=== PATIENT | female | born 1990 | race Caucasian/White ===

== ENCOUNTER 2018-09-04 09:46 | Outpatient (CLI) | payer BC ==
[~2018-09-04] VITALS: Ht 180.3 cm; Wt 72.0 kg
[2018-09-04 10:06] VITALS: Ht 180.3 cm; Wt 72.0 kg
[2018-09-04 10:07] VITALS: BP 111/72; PULSE 85; RESP 20
[2018-09-04] MEDS ORDERED: PREN1TAB13 PO (10:12)
--- NOTE | 2018-09-04 11:31 | PN ---
Triage Information Date/Time Reason for visit: Diarrhea and Flu symptoms Weeks of Gestation 19-20wks /Para 2/1 Diabetes: none Hypertention: none Objective Vital Signs Date Temp Pulse Resp B/P (MAP) Pulse Ox O2 O2 Flow FiO2 Time Delivery Rate 09/04/18 97.9 85 20 111/72 Room Air 10:07 (85) Heart Rate: 140's Contractions: None Disposition: Discharge Assessment/Plan Ultrasound reviewed Questions answered Patient is sent to ER for Further evaluation of Diarrhea and Flu LYNETTE ROWE M.D. Sep 04, 2018 11:31
--- NOTE | 2018-09-04 11:36 | TRIAGE ---
OB Triage Datetime Report Generated by CPN: 09/04/2018 11:36 Datetime: 09/04/2018 10:22 Comments: PT MOVING Datetime: 09/04/2018 09:59 Time of Arrival: 09/04/2018 09:35 Arrived By: Ambulatory Arrived From: Home Chief Complaint: NAUSEA,DIARRHEA COUGH X 2 WEEKS Movement: Present Contractions: Denies/Absent Rupture of Membranes: Denies Vaginal Bleeding: None Vaginal Discharge: Denies Recent Sexual Intercouse: Denies Abdominal Trauma: Not Applicable Patient Complaints: Nausea; Other Time Provider Notified: 09/04/2018 10:15 Provider Notified: DR ROWE Initial Plan: EFM,ACLL DR ROWE Datetime: 09/04/2018 09:54 Maternal Assessment Level of Consciousness: Fully Conscious DTR's/Clonus: DTRs 2+; No Clonus Headache: Denies Blurred Vision: No Respiratory Effort: Unlabored; Regular Rhythm; Equal Expansion Breath Sounds, Left: Clear and Equal Breath Sounds, Right: Clear and Equal Nausea/Vomiting: Denies RUQ Epigastric Pain: Denies Facial Edema: None Temperature Route: Axillary Fall Risk Assessment History of Falling: (0) No Secondary Diagnosis: (0) No Ambulatory Aid: (0) Bedrest/Nurse Assist IV Therapy: (0) No Gait: (0) Normal/Bedrest/Immobile Mental Status: (0) Oriented to Own Ability Fall Score: 0 Fall Risk Score Definition: No Risk: No action required Datetime: 09/04/2018 09:52 Maternal Assessment Level of Consciousness: Fully Conscious DTR's/Clonus: DTRs 2+ Headache: Denies Blurred Vision: No Nausea/Vomiting: Denies RUQ Epigastric Pain: Denies Facial Edema: None Labor Evaluation Frequency: NONE Pattern: Normal: <= 5 Contractions in 10 Minutes Resting Tone [place]: Relaxed Heart Rate FHR Baseline Rate: 150 Monitor Mode: External US FHR Baseline Changes: No Baseline Change Variability: Minimal - Undetectable to <=5 bpm Accelerations: 10X10 Decelerations: None Category: Category I Pain Assessment Pain Presence: None/Denies Vaginal Exam Membrane Status: Intact
[2018-09-04] MEDS ORDERED: GUAI-637 PO (12:54)
== END 2018-09-04 11:35 | disposition home or self-care (01) ==
LOC: OBT 09:46 → L-D 09:47 → OBT 11:35
PROVIDERS: ATTEND Obstetrics & Gynecology
DX: O26.892 Other specified pregnancy related conditions, second trimester (principal); R19.7 Diarrhea, unspecified; J11.1 Influenza due to unidentified influenza virus with other respiratory manifestations; Z3A.21 21 weeks gestation of pregnancy
CPT/HCPCS: 76815; G0463

== ENCOUNTER 2018-09-04 11:38 | Emergency (ER) | payer BC ==
[~2018-09-04] VITALS: Ht 165.1 cm; Wt 74.6 kg
[~2018-09-04 11:38] MED LIST: PREN1TAB13 PO
[2018-09-04 11:44] VITALS: BP 118/71; PULSE 85; RESP 20; Ht 165.1 cm; Wt 74.6 kg
[2018-09-04] MEDS ORDERED: GUAI-637 PO (12:54)
--- NOTE | 2018-09-04 20:19 | ERD ---
ER Documentation Chief Complaint Chief Complaint Sent from OB for eval a cough x 2 days HPI 27-year-old female presents for cough times 2 days. Patient is currently 28 weeks . She had some stomach cramps and was cleared by HEAD ATHLETIC TRAINER/STRENGTH COACH and was sent down to evaluate her cough. Patient states that she had flulike symptoms for about 2 weeks. Cough developed about 2 days ago. Denies any fevers or chills. There is associated diarrhea which she notes is soft. Denies chest pain or shortness of breath. ROS All systems reviewed and are negative except as per history of present illness. Medications Home Meds Active Scripts Guaifenesin* (Robitussin*) 100 Mg/5 Ml Syrup, 200 MG PO Q6H PRN for COUGH for 7 Days, #1 BOTTLE Prov:HOME NUÑEZ DO 09/04/18 Reported Medications Pnv95/Ferrous Fumarate/FA ( Vitamins Tablet) 1 Each Tablet, 1 EACH PO, TAB 09/04/18 Allergies Allergies: Coded Allergies: No Known Allergy (Unverified , 09/04/18) PMhx/Soc Medical and Surgical Hx: pt denies Medical Hx, pt denies Surgical Hx Hx Alcohol Use: No Hx Substance Use: No Hx Tobacco Use: No Smoking Status: Never smoker Physical Exam Vitals Vital Signs Date Temp Pulse Resp B/P (MAP) Pulse Ox O2 O2 Flow FiO2 Time Delivery Rate 09/04/18 98.6 85 20 118/71 99 11:44 (87) Physical Exam Const: No acute distress Head: Atraumatic Eyes: Normal Conjunctiva ENT: Normal External Ears, bilateral tympanic membrane intact without eryt tommie or bulging noted, nose and Mouth examination normal, no tonsillar swelling or exudate noted Neck: Full range of motion. No meningismus. Resp: Clear to auscultation bilaterally, no wheezing, rales, rhonchi Cardio: Regular rate and rhythm, no murmurs Skin: No petechiae or rashes Ext: No cyanosis, or edema Neur: Awake and alert Psych: Normal Mood and Affect Procedures/MDM Medical Decision Making: Differential diagnosis includes but not limited to upper respiratory infection, pneumonia, sepsis, meningitis. Patient appeared well on physical examination, nontoxic appearing. Lungs were clear to auscultation bilaterally. There is low suspicion for pneumonia, sepsis, meningitis. Patient likely has an upper respiratory infection, likely viral. Therefore antibiotics not indicated. Discussed symptomatic treatment with patient who agrees with plan. Patient given prescription for guaifenesin. Patient advised to take occasionally as directed and only take as needed given that she is currently . Advise follow-up outpatient with HEAD ATHLETIC TRAINER/STRENGTH COACH. Patient advised to follow up with PCP in 1-2 days. Patient advised to return to ED for new or worsening symptoms. Patient stable on discharge from the ED. Disclaimer: Inadvertent spelling and grammatical errors are likely due to EHR/dictation software use and do not reflect on the overall quality of patient care. Also, please note that the electronic time recorded on this note does not necessarily reflect the actual time of the patient encounter. Departure Diagnosis: Primary Impression: Cough Condition: Fair Patient Instructions: Uri, Viral, No Abx (Adult) Referrals: [facility] YOU HAVE RECEIVED A MEDICAL SCREENING EXAM AND THE RESULTS INDICATE THAT YOU DO NOT HAVE A CONDITION THAT REQUIRES URGENT TREATMENT IN THE EMERGENCY DEPARTMENT. FURTHER EVALUATION AND TREATMENT OF YOUR CONDITION CAN WAIT UNTIL YOU ARE SEEN IN YOUR DOCTORS OFFICE WITHIN THE NEXT 1-2 DAYS. IT IS YOUR RESPONSIBILITY TO MAKE AN APPOINTMENT FOR FOLOW-UP CARE. IF YOU HAVE A PRIMARY DOCTOR --you should call your primary doctor and schedule an appointment IF YOU DO NOT HAVE A PRIMARY DOCTOR YOU CAN CALL OUR PHYSICIAN REFERRAL HOTLINE AT IF YOU CAN NOT AFFORD TO SEE A PHYSICIAN YOU CAN CHOSE FROM THE FOLLOWING [facility] [address] [facility]. [facility] [address] [facility] [facility] [address] [facility] [facility] [address] [facility]. [facility] [address] [facility]. [facility]. [address] Additional Instructions: Call your primary care doctor TOMORROW for an appointment during the next 1-2 days.See the doctor sooner or return here if your condition worsens before your appointment time. HOME NUÑEZ DO Sep 04, 2018 20:19
== END 2018-09-04 13:07 | disposition home or self-care (01) ==
LOC: FTE 11:38
DX: R05 Cough (principal)
CPT/HCPCS: 99282

== ENCOUNTER 2019-01-11 02:10 | Emergency (ER) | payer BC ==
[~2019-01-11] VITALS: Ht 165.1 cm; Wt 74.6 kg
[~2019-01-11 02:10] MED LIST changes: +GUAI-637 PO
[2019-01-11 02:16] VITALS: Ht 165.1 cm; Wt 74.6 kg
[2019-01-11] MEDS ORDERED: LORAZEPAM 2 MG INJ IM ONE (03:00)
[2019-01-11] MEDS ORDERED: ALBU8.5H8 INH (03:58)
[2019-01-11] MEDS ORDERED: NAPR-958 PO (03:58)
[2019-01-11] MEDS ORDERED: OLAN5TAB5 PO (03:58)
--- NOTE | 2019-01-11 04:31 | PSY ---
Date/Time of Note Date/Time of Note DATE: 01/11/19 TIME: 04:27 Psychiatric Subjective Eval Consent Pt consented to telemedicine: Yes Subjective Evaluation Patient location: emergency Chief Complaint: [id number],from home,heroine & meth use, called 911 Medical history Problems Medical Problems: (1) Cough Status: Acute (2) Cough Status: Acute Allergies: Coded Allergies: No Known Allergy (Unverified , 01/11/19) Psychiatric Objective Eval Mental Status Examination: Laboratory Results Laboratory Tests Test 01/11/19 03:15 White Blood Count 9.1 10^3/ul Red Blood Count 4.64 10^6/ul Hemoglobin 12.9 g/dl Hematocrit 39.7 % Mean Corpuscular Volume 85.6 fl Mean Corpuscular Hemoglobin 27.8 pg Mean Corpuscular Hemoglobin Concent 32.5 g/dl Red Cell Distribution Width 14.6 % Platelet Count 352 10^3/UL Mean Platelet Volume 9.2 fl Immature Granulocytes % 0.300 % Neutrophils % 66.1 % Lymphocytes % 24.4 % Monocytes % 7.8 % Eosinophils % 1.1 % Basophils % 0.3 % Nucleated Red Blood Cells % 0.0 /100WBC Immature Granulocytes # 0.030 10^3/ul Neutrophils # 6.0 10^3/ul Lymphocytes # 2.2 10^3/ul Monocytes # 0.7 10^3/ul Eosinophils # 0.1 10^3/ul Basophils # 0.0 10^3/ul Nucleated Red Blood Cells # 0.0 10^3/ul Sodium Level 144 mmol/L Potassium Level 3.8 mmol/L Chloride Level 111 mmol/L Carbon Dioxide Level 21 mmol/L Anion Gap 12 Blood Urea Nitrogen 21 mg/dl Creatinine 0.69 mg/dl Est Glomerular Filtrat Rate mL/min > 60 mL/min Glucose Level 92 mg/dl Calcium Level 9.2 mg/dl Total Bilirubin 0.8 mg/dl Direct Bilirubin 0.00 mg/dl Indirect Bilirubin 0.8 mg/dl Aspartate Amino Transf (AST/SGOT) 34 IU/L Alanine Aminotransferase (ALT/SGPT) 24 IU/L Alkaline Phosphatase 64 IU/L Total Protein 7.3 g/dl Albumin 4.4 g/dl Globulin 2.90 g/dl Albumin/Globulin Ratio 1.51 Salicylates Level < 1.0 mg/dl Acetaminophen Level < 10.0 ug/ml Ethyl Alcohol Level < 10.0 mg/dl Assessment and Plan Recommendation/Plan Discharge Disposition: Psychiatric inpatient Legal Status: Place involuntary hold Assessment Additional comments: IDENTIFYING INFORMATION: 28 year old Female patient who is currently located at the hospital and for whom psychiatric consultation was requested. SOURCES OF INFORMATION: The patient who appears to be unreliable and the medical records; the nursing staff. CHIEF COMPLAINT: "I am trying to relax". HISTORY OF PRESENT ILLNESS: The patient was interviewed via telemedicine in the presence of and under the supervision of nursing staff of the hospital. The consent to conducting this interview via telemedicine was obtained by the nursing staff at the hospital. RN Osvaldo reports that the patient presented with strange behavior, was touching herself inappopriately in public, RTIS. Received 2 mg of Ativan while at the ER. Has h/o BPAD, opioid use and heroin use. The patient reports that you know how I am about it, in secrecy, I need to make the hospital a clean place, I am trying to understand the level of 9th dimensional hearing, I dishonorably discharge you because you are a user, trophy , happy of your curious greed. Thank you for my therapeutic issues. I was trying to ask my Creator. PAST MEDICAL HISTORY: unable to assess. recently gave in late December 2018, CURRENT MEDICATIONS: Unable to assess as the patient was not able to cooperate with the interview at this time. ALLERGIES TO MEDICATIONS: Unable to assess as the patient was not able to cooperate with the interview at this time. per chart: [facility] LABORATORY TESTS: CBC wnl, CMP wnl, UDS pending, alcohol level -. SOCIAL HISTORY: Unable to assess as the patient was not able to cooperate with the interview at this time. FAMILY HISTORY: Unable to assess as the patient was not able to cooperate with the interview at this time. REVIEW OF SYSTEMS: unable to assess due to the patient not being able to cooperate. MENTAL STATUS EXAMINATION: General Appearance and Behavior: uncooperative with the interview, makes poor eye contact, poorly groomed, no abnormal movements noted. Speech: increased rate, regular rhythm, decreased latency, high volume, increased amount. Flow of thought: illogical, tangential, Content of thought: positive for delusions, auditory hallucinations, Unable to assess further as the patient is not able to cooperate with the interview due to psychosis. Mood: Unable to assess as the patient is not able to cooperate with the interview due to psychosis. Affect: euphoric, decreased range of reactivity, Attention: unable to assess fully. Insight: poor. Judgment: poor. Memory: Unable to assess as the patient is not able to cooperate with the interview due to sedation. Sensorium: alert, oriented to person, unable to assess further. ASSESSMENT: The patient's presentation and history are consistent with the diagnosis of unspecified psychotic disorder, stimulant use disorder. The patient presents with an exacerbation of psychosis in the context of medication noncompliance, psychosocial stressors and substance use. PLAN: - Medication management: Would start Zyprexa 5 mg by mouth twice a day. Would start haloperidol 5 mg IM PRN severe agitation q4 hours. Would start diphenhydramine 50 mg IM PRN severe agitation q4 hours. Would start lorazepam 2 mg IM PRN severe agitation q4 hours Will defer to the inpatient psychiatry team for other medication changes. - Labs: Please check UDS. - Psychotherapy: unable to provide psychotherapy at this time due to the patient's mental status. - Disposition: Would recommend involuntary admission to the inpatient psychiatric unit given the severity of the patient's psychiatric condition and the fact that the patient is an imminent danger to self and/or others so long as the patient has been cleared medically for admission to psychiatry. Inpatient psychiatric admission is at this time the least restrictive environment where the patient can receive the psychiatric care that is needed. Would place on suicide precautions. The patient fulfills criteria for being placed on an involuntary hold for being a danger to self as well as gravely disabled due to a psychiatric disorder. Discussed about the above plan with Dr. Guzmán. YADIRA LEDESMA MD Jan 11, 2019 04:31
--- NOTE | 2019-01-11 05:19 | ERD ---
ER Documentation Chief Complaint Chief Complaint [id number],from home,heroine & meth use, called 911 HPI Is a 28-year-old female whose called 9 1 after she is using heroin and meth and was acting oddly. Patient brought in by rescue. Does not provide any relevant history given her altered state. ROS All systems reviewed and are negative except as per history of present illness. Medications Home Meds Reported Medications Albuterol Sulfate* (Proair HFA*) 8.5 Gm Hfa.aer.ad, 2 PUFF INH Q4, #1 INHALER 01/11/19 Naproxen* (Naproxen*) 550 Mg Tablet, 550 MG PO DAILY PRN for PAIN LEVEL 1-3 01/11/19 Olanzapine* (Zyprexa*) 5 Mg Tablet, 5 MG PO BID for 30 Days, #60 01/11/19 Discontinued Reported Medications Pnv95/Ferrous Fumarate/FA ( Vitamins Tablet) 1 Each Tablet, 1 EACH PO, TAB 09/04/18 Discontinued Scripts Guaifenesin* (Robitussin*) 100 Mg/5 Ml Syrup, 200 MG PO Q6H PRN for COUGH for 7 Days, #1 BOTTLE Prov:HOME NUÑEZ DO 09/04/18 Allergies Allergies: Coded Allergies: No Known Allergy (Unverified , 01/11/19) PMhx/Soc Medical and Surgical Hx: pt denies Medical Hx History of Surgery: No Anesthesia Reaction: No Hx Neurological Disorder: No Hx Respiratory Disorders: No Hx Cardiac Disorders: No Hx Psychiatric Problems: Yes (BIPOLAR DISORDER, SCHIZOPHRENIA, PTSD. ) Hx Miscellaneous Medical Probl: No Hx Alcohol Use: Yes Hx Substance Use: Yes Hx Tobacco Use: Yes Smoking Status: Current some day smoker Physical Exam Vitals Vital Signs Date Temp Pulse Resp B/P (MAP) Pulse Ox O2 O2 Flow FiO2 Time Delivery Rate 01/11/19 89 18 122/92 100 Room Air 05:00 (102) 01/11/19 98.1 102 18 131/94 96 02:16 (106) Physical Exam Const: No acute distress Head: Atraumatic Eyes: Normal Conjunctiva ENT: Normal External Ears, Nose and Mouth. Neck: Full range of motion. No meningismus. Resp: Clear to auscultation bilaterally Cardio: Regular rate and rhythm, no murmurs Abd: Soft, non tender, non distended. Normal bowel sounds Skin: No petechiae or rashes Back: No midline or flank tenderness Ext: No cyanosis, or edema Neur: Awake and alert Psych: Normal Mood and Affect Result Diagram: 01/11/1931401/11/19314 Results 24 hrs Laboratory Tests Test 01/11/19 03:15 01/11/19 04:03 White Blood Count 9.1 10^3/ul Red Blood Count 4.64 10^6/ul Hemoglobin 12.9 g/dl Hematocrit 39.7 % Mean Corpuscular Volume 85.6 fl Mean Corpuscular Hemoglobin 27.8 pg Mean Corpuscular Hemoglobin Concent 32.5 g/dl Red Cell Distribution Width 14.6 % Platelet Count 352 10^3/UL Mean Platelet Volume 9.2 fl Immature Granulocytes % 0.300 % Neutrophils % 66.1 % Lymphocytes % 24.4 % Monocytes % 7.8 % Eosinophils % 1.1 % Basophils % 0.3 % Nucleated Red Blood Cells % 0.0 /100WBC Immature Granulocytes # 0.030 10^3/ul Neutrophils # 6.0 10^3/ul Lymphocytes # 2.2 10^3/ul Monocytes # 0.7 10^3/ul Eosinophils # 0.1 10^3/ul Basophils # 0.0 10^3/ul Nucleated Red Blood Cells # 0.0 10^3/ul Sodium Level 144 mmol/L Potassium Level 3.8 mmol/L Chloride Level 111 mmol/L Carbon Dioxide Level 21 mmol/L Anion Gap 12 Blood Urea Nitrogen 21 mg/dl Creatinine 0.69 mg/dl Est Glomerular Filtrat Rate mL/min > 60 mL/min Glucose Level 92 mg/dl Calcium Level 9.2 mg/dl Total Bilirubin 0.8 mg/dl Direct Bilirubin 0.00 mg/dl Indirect Bilirubin 0.8 mg/dl Aspartate Amino Transf (AST/SGOT) 34 IU/L Alanine Aminotransferase (ALT/SGPT) 24 IU/L Alkaline Phosphatase 64 IU/L Total Protein 7.3 g/dl Albumin 4.4 g/dl Globulin 2.90 g/dl Albumin/Globulin Ratio 1.51 Salicylates Level < 1.0 mg/dl Acetaminophen Level < 10.0 ug/ml Ethyl Alcohol Level < 10.0 mg/dl Urine Color CHUCK Urine Clarity CLOUDY Urine pH 6.0 Urine Specific [place] 1.027 Urine Ketones 1+ mg/dL Urine Nitrite NEGATIVE mg/dL Urine Bilirubin NEGATIVE mg/dL Urine Urobilinogen 1+ mg/dL Urine Leukocyte Esterase TRACE Fredy/ul Urine Microscopic RBC > 182 /HPF Urine Microscopic WBC 33 /HPF Urine Squamous Epithelial Cells FEW /HPF Urine Mucus MODERATE /HPF Urine Hemoglobin 3+ mg/dL Urine Glucose NEGATIVE mg/dL Urine Total Protein 2+ mg/dl Urine Opiates Screen NEGATIVE Urine Barbiturates NEGATIVE Urine Amphetamines Screen POSITIVE Urine Benzodiazepines Screen NEGATIVE Urine Cocaine Screen NEGATIVE Urine Cannabinoids POSITIVE Current Medications Medications Dose Sig/Home Start Time Status Last (Trade) Ordered Route PRN Stop Time Admin Dose Reason Admin Lorazepam 2 mg ONCE ONCE 01/11/19 DC 01/11/19 (Ativan) IM 03:00 01/11/19 02:49 03:01 Procedures/MDM Patient's behavioral symptoms have stabilized while in the department. Patient is medically cleared and appropriate for psychiatric evaluation and work up. No e/o neurologic, toxic, infectious, or metabolic cause. Patient was placed on 5150 involuntary recommendation secondary to acute psychosis which I agree with. Medications recommended were reviewed. At this time patient does not require these medications. Departure Diagnosis: Primary Impression: Psychosis Psychosis type: unspecified psychosis type Qualified Codes: F29 - Unspecified psychosis not due to a substance or known physiological condition Condition: Stable BLANCO PIERRE Jan 11, 2019 05:19
[2019-01-11] MEDS ORDERED: OLANZAPINE 5 MG TAB PO SCH (09:00)
[2019-01-11] MEDS ORDERED: LORAZEPAM 1 MG TAB PO ONE (10:00)
[2019-01-11 14:21] VITALS: BP 123/72; PULSE 84; RESP 18
--- NOTE | 2019-01-11 14:47 | QN ---
Documentation Comment Psychiatric Observation Note: Indication: Suicidal ideation Duration: Greater than 8 hours Family history: As documented in original HPI The patient was observed with serial exams over the above timeframe. The patient continued to be well-appearing, and observation continued without complication. All other needs have been met during emergency department stay. Routine psychiatric medications ordered: Yes, see EMR Hold status: Telemetry medicine psychiatry has recommended 5150 hold Placement status: Pending placement and hold at this time. YOON CHEEMA MD Jan 11, 2019 14:47
--- NOTE | 2019-01-11 15:19 | QN ---
Documentation Comment Patient was signed out to me pending evaluation by PET team for possible i nvoluntary psychiatric hold. Patient was evaluated and deemed appropriate for transfer. Interface Analyst does not feel the patient requires an involuntary hold. She already has a social research assistant involved in her case. She will follow-up outpatient with the resources that were provided by the mushroom packer. PILAR MESSINA MD Jan 11, 2019 15:19
== END 2019-01-11 17:33 | disposition home or self-care (01) ==
LOC: E/R 02:10
DX: F29 Unspecified psychosis not due to a substance or known physiological condition (principal); F17.210 Nicotine dependence, cigarettes, uncomplicated; R40.2142 Coma scale, eyes open, spontaneous, at arrival to emergency department; R40.2362 Coma scale, best motor response, obeys commands, at arrival to emergency department; R40.2222 Coma scale, best verbal response, incomprehensible words, at arrival to emergency department
CPT/HCPCS: 36415; 80053; 80307; 81001; 85025; 96372; 99284; J2060